=== PATIENT | male | born 1955 | race Caucasian/White ===

== ENCOUNTER 2020-08-22 08:28 | Day surgery (SDC) | payer MEDICARE, OTHER ==
[2020-08-19 15:43] VITALS: BMI 33.3
[~2020-08-22 08:28] MED LIST: LACTATED RINGERS 1,000 ML IV SCH
[2020-08-22 09:12] VITALS: TEMP 98.9
[2020-08-22] MEDS ORDERED: PROPOFOL 10 MG/ML 20 ML VIAL IV ONE (09:47)
--- NOTE | 2020-08-22 10:06 | P.PCN ---
Date of Procedure: 08/22/20 Procedure(s) Performed: BRIEF HISTORY: Patient is a 65-year-old pleasant white male scheduled for an elective colonoscopy as a part of screening for colon rectal neoplasia. He has family history of colon cancer in his mom diagnosed with a 60 paternal grandfather at age 70 PROCEDURE PERFORMED: Colonoscopy. PREOPERATIVE DIAGNOSIS: Screening for colon cancer/family history of colon cancer. IV sedation per Anesthesia. PROCEDURE: After informed consent was obtained, the patient, was brought into the endoscopy unit. IV sedation was administered by Anesthesia under continuous monitoring. Digital rectal examination was normal. Initially the Olympus CF-160 flexible video colonoscope was then inserted in the rectum, gradually advanced into the cecum without any difficulty. Careful examination was performed as the scope was gradually being withdrawn. Ileocecal valve and the appendiceal orifice were visualized and appeared normal. Prep was excellent. Mucosa of the cecum, ascending colon, transverse colon, descending colon, sigmoid colon, and rectum appeared normal. Retroflexion was performed in the rectum and no lesions were seen. Scattered left-sided diverticulosis. The patient tolerated the procedure well. IMPRESSION: Normal-appearing colon from rectum to cecum with no evidence of colitis or colorectal neoplasia. Scattered left-sided diverticulosis. RECOMMENDATIONS: Findings of this examination were discussed with the patient as well as his family. He was advised to have a repeat screening colonoscopy in 5 years because of the family history of colon cancer.
[2020-08-22 10:12] VITALS: RESP 16
[2020-08-22 10:30] VITALS: BP 142/86; PULSE 61
== END 2020-08-22 10:38 | disposition home or self-care (01) ==
LOC: ORWHC2ENDO 08:28
PROVIDERS: ATTEND Internal Medicine Gastroenterology
DX: Z12.11 Encounter for screening for malignant neoplasm of colon (principal); Z80.0 Family history of malignant neoplasm of digestive organs; K57.90 Diverticulosis of intestine, part unspecified, without perforation or abscess without bleeding; I10 Essential (primary) hypertension; E78.5 Hyperlipidemia, unspecified; Z87.891 Personal history of nicotine dependence; Z79.899 Other long term (current) drug therapy; Z88.1 Allergy status to other antibiotic agents
CPT/HCPCS: J2704; G0105

== ENCOUNTER 2023-06-08 08:37 | Emergency (ER) | payer MEDICARE, OTHER ==
[2023-06-08 09:03] LABS: Basophils # (A) 0.1 k/uL (0-0.2); Basophils % (A) 1 %; Eosinophils # (A) 0.2 k/uL (0-0.7); Eosinophils % (A) 4 %; HCT 50.4 % (39.0-53.0); HGB 17.2 gm/dL (13.0-17.5); Lymphocytes # (A) 1.5 k/uL (1.0-4.8); Lymphocytes % (A) 24 %; MCH 32.4 pg (25.0-35.0); MCHC 34.2 g/dL (31.0-37.0); MCV 94.6 fL (80.0-100.0); Mean Platelet Volume 8.6; Monocytes # (A) 0.4 k/uL (0-1.0); Monocytes % (A) 7 %; Neutrophils % (A) 63 %; Platelet Count 209 k/uL (150-450); RBC 5.33 m/uL (4.30-5.90); RDW 13.4 % (11.5-15.5); WBC 6.4 k/uL (3.8-10.6)
[2023-06-08 09:13] LABS: ALT 34 U/L (4-49); AST 41 U/L (17-59); Albumin 4.5 g/dL (3.5-5.0); Alkaline Phosphatase 85 U/L (38-126); Anion Gap 9 mmol/L; Blood Urea Nitrogen 23 mg/dL (9-20); Calcium 9.6 mg/dL (8.4-10.2); Carbon Dioxide 22 mmol/L (22-30); Chloride 108 mmol/L (98-107); Glucose 121 mg/dL (74-99); Magnesium 2.2 mg/dL (1.6-2.3); Potassium 4.2 mmol/L (3.5-5.1); Sodium 139 mmol/L (137-145); Total Bilirubin 0.6 mg/dL (0.2-1.3); Total Protein 7.5 g/dL (6.3-8.2)
[2023-06-08 09:14] LABS: African American GFR (CKD) >90 (>60 ml/min/1.73 sqM); Non-African American GFR(CKD) >90 (>60 ml/min/1.73 sqM)
[2023-06-08 09:20] LABS: Partial Thromboplastin Time 24.9 sec (22.0-30.0); Prothrombin Time 11.1 sec (10.0-12.5)
--- NOTE | 2023-06-08 09:36 | ED ---
General Adult HPI - General Chief complaint: Chest Pain Stated complaint: chest pain Time Seen by Provider: 06/08/23 09:29 Source: patient, RN notes reviewed, old records reviewed Mode of arrival: ambulatory Limitations: no limitations - History of Present Illness Initial comments: Patient is a 67-year-old male with past medical history remarkable for hypertension, arthritis, back pain who presents emergency department complaining of left-sided rib pain under his armpit as well as occasional left-sided arm shooting numbness. States the pain and numbness seems positional, somewhat worse with certain movements as well as with turning of his neck. States has been ongoing for multiple days. Denies any diaphoresis, nausea, vomiting. Den ies any abdominal pain. Currently has no pain. Does receive injections for the right shoulder. No recent CT imaging of the neck. Denies shortness of breath or recent long distance travel. Denies any leg swelling. Presents for further evaluation at this time. Currently is asymptomatic. - Related Data Home Medications Medication Instructions Recorded Confirmed Ibuprofen [Motrin] 600 mg PO BID PRN 08/30/14 06/08/23 Losartan Potassium [Cozaar] 100 mg PO HS 08/30/14 06/08/23 Metoprolol Succinate [Toprol XL] 200 mg PO BID 08/30/14 06/08/23 Naproxen Sodium [Aleve] 440 mg PO BID 08/04/15 06/08/23 amLODIPine BESYLATE [Norvasc] 10 mg PO HS 08/04/15 06/08/23 Fenofibrate Nanocrystallized 145 mg PO DAILY 08/19/20 06/08/23 [Tricor] Betamethasone Dipropionate 1 applic TOPICAL DAILY PRN 06/08/23 06/08/23 [Diprolene 0.05% Cream (GEQ)] Tamsulosin [Flomax] 0.4 mg PO PC-SUPPER 06/08/23 06/08/23 Allergies Allergy/AdvReac Type Severity Reaction Status Date / Time azithromycin Allergy Severe Rash/Hives Verified 06/08/23 09:53 [From Zithromax Z-Adrian] all over body Review of Systems ROS Statement: Those systems with pertinent positive or pertinent negative responses have been documented in the HPI. Review of Systems: CONST: Denies fever EYES: Denies blurry vision ENT: Denies nasal congestion C/V: Denies Chest pain RESP: Denies shortness of breath GI: Denies abdominal pain : Denies dysuria SKIN: Denies rash. MSK: Denies joint pain. NEURO: Denies headache ROS Other: All systems not noted in ROS Statement are negative. Past Medical History Past Medical History: Eye Disorder, Hypertension, Osteoarthritis (OA) Additional Past Medical History / Comment(s): CHRONIC BACK PAIN, hemorrhoids, bulging disks, glaucoma History of Any Multi-Drug Resistant Organisms: None Reported Past Surgical History: Back Surgery, Hernia Repair, Orthopedic Surgery Additional Past Surgical History / Comment(s): LAMINECTOMY L5- S1,COLONOSCOPY,BILAT BUNION SX. BONE SPUR REMOVED FROM SINUS CAVITY, JESSICA inguinal AND UMBILICAL HERNIA REPAIR, laser surgery jessica eyes, jessica cataracts, rotator cuff rt shoulder, Past Anesthesia/Blood Transfusion Reactions: Previous Problems w/ Anesthesia Additional Past Anesthesia/Blood Transfusion Reaction / Comment(s): hiccups for 11 days after shoulder surgery Past Psychological History: No Psychological Hx Reported Smoking Status: Current every day smoker - Past Family History Mother Family Medical History: Cancer Additional Family Medical History / Comment(s): rectal Sister(s) Family Medical History: Cancer Additional Family Medical History / Comment(s): breast Brother(s) Family Medical History: Cancer Additional Family Medical History / Comment(s): kidney, brain Son(s) Family Medical History: Cancer General Exam - General Exam Comments Initial Comments: General: Appears in no acute distress. HEAD: Normal with no signs of head trauma. EYES: PERRLA, EOMI, conjunctiva normal, no discharge. ENT: Hearing grossly intact, normal oropharynx. RESPIRATORY: Clear breath sounds bilaterally. No wheezes, rales, or rhonchi. C/V: Regular rate and rhythm. S1 and S2 auscultated, no edema, peripheral pulses 2+ and intact throughout, symmetrical. Hypertensive in triage however patient did not take his medications this morning. Took them since that blood pressure reading. ABD: Abd is soft, nontender, nondistended EXT: No midline cervical, thoracic spine tenderness to palpation. No midline lumbar spine tenderness to palpation. Paraspinal muscle tenderness palpation of the neck as well as upper thoracic spine with some tenderness to palpation in the posterior shoulder. SKIN: No rashes or lesions observed on exposed skin. NEURO: Alert and oriented x 4. Cranial nerves II-XII intact. No focal sensory or strength deficits. Limitations: no limitations Course Vital Signs 06/08/23 06/08/23 06/08/23 08:38 09:49 11:30 Temperature 97.4 F L Pulse Rate 79 58 L Respiratory 18 16 Rate Blood Pressure 200/94 132/82 161/56 O2 Sat by Pulse 98 96 Oximetry 06/08/23 06/08/23 12:00 13:12 Temperature 98.8 F Pulse Rate 60 Respiratory 18 Rate Blood Pressure 137/75 155/81 O2 Sat by Pulse 97 Oximetry Medical Decision Making - Medical Decision Making Was pt. sent in by a medical professional or institution (, PA, WELL SERVICE DERRICK WORKER, urgent care, hospital, or half-way...) When possible be specific @ -No Did you speak to anyone other than the patient for history (EMS, parent, family, police, friend...)? What history was obtained from this source @ -No Did you review nursing and triage notes (agree or disagree)? Why? @ -I reviewed and agree with nursing and triage notes Were old charts reviewed (outside hosp., previous admission, EMS record, old EKG, old radiological studies, urgent care reports/EKG's, half-way records)? Report findings @ -Old charts reviewed Differential Diagnosis (chest pain, altered mental status, abdominal pain women, abdominal pain men, vaginal bleeding, weakness, fever, dyspnea, syncope, headac he, dizziness, GI bleed, back pain, seizure, CVA, palpatations, mental health, musculoskeletal)? @ -ACS, chest wall pain, muscle strain, muscle spasm, cervical radiculopathy, this list is not all inclusive. EKG interpreted by me (3pts min.). @ -As above X-rays interpreted by me (1pt min.). @ -Chest x-ray shows no acute cardiopulmonary process. CT interpreted by me (1pt min.). @ -Chest CTA revealed no obvious pulmonary embolism. Patient does have COPD. CT C-spine reveals degeneration in the cervical spine. U/S interpreted by me (1pt. min.). @ -None done What testing was considered but not performed or refused? (CT, X-rays, U/S, labs)? Why? @ -None What meds were considered but not given or refused? Why? @ -I offered analgesia medications which patient declined. Did you discuss the management of the patient with other professionals (professionals i.e. , PA, WELL SERVICE DERRICK WORKER, lab, RT, psych nurse, social worker masters, insulation helper, teacher, child support officer, case mgr)? Give summary @ -No Was smoking cessation discussed for >3mins.? @ -No Was critical care preformed (if so, how long)? @ -No Were there social determinants of health that impacted care today? How? (Homelessness, low income, unemployed, alcoholism, drug addiction, transportation, low edu. Level, literacy, decrease access to med. care, nursing home, rehab)? @ -No Was there de-escalation of care discussed even if they declined (Discuss DNR or withdrawal of care, Hospice)? DNR status @ -No What co-morbidities impacted this encounter? (DM, HTN, Smoking, COPD, CAD, Cancer, CVA, ARF, Chemo, Hep., AIDS, mental health diagnosis, sleep apnea, morbid obesity)? @ -None Was patient admitted / discharged? Hospital course, mention meds given and route, prescriptions, significant lab abnormalities, going to OR and other pertinent info. @ -Based on the patient's presentation and physical exam, presents with atypical what he describes chest pain which seems to be more chest wall pain and musculoskeletal back pain and possible cervical radiculopathy. Workup was started in triage. I evaluated the patient when he was placed in a room. We will obtain cardiac workup including screening D-dimer. Patient was in agreement this plan. Will also obtain chest x-ray and CT of the neck. Patient will receive lidocaine patch for analgesia at this time. Laboratory studies have already returned by the time evaluated the patient were remarkable for an undetectable troponin. D-dimer was added we will obtain a second troponin as the patient is currently asymptomatic and would like to go home if possible. Patient was in agreement this plan.Patient is currently hypertensive however patient has recently taken his blood pressure medication since the initial reading. Therefore we will continue to monitor at this time. Vital signs within acceptable limits. EKG shows no signs of acute ischemia. Patient's laboratory studies, as stated above are within acceptable limits including a troponin that is undetectable. D-dimer returned elevated and therefore we added on a CT PE to evaluate for pulmonary embolism. Second 3-hour troponin was undetectable. Chest x-ray showed no signs of acute pulmonary process. Chest CTA revealed no obvious pulmonary embolism. Patient does have COPD. CT C-spine reveals degeneration in the cervical spine. No obvious fracture or injury. At this time, I updated the patient. He is resting comfortably and would like to go home. He was in agreement this plan. We discussed his workup results. Patient will follow-up with his physician next week. Patient already follows up with orthopedics which he will do. He will be discharged home at this time. Strict return precautions discussed. I instructed the patient to follow up with their PCP in the next 1-3 days. I explained that the patient should return to the emergency department if they experience any worsening symptoms. Strict return precautions were discussed with the patient. The patient expressed understanding of these instructions. I answered all questions that the patient had. The patient was discharged home in good condition with their prescriptions and follow up information. Undiagnosed new problem with uncertain prognosis? @ -No Drug Therapy requiring intensive monitoring for toxicity (Heparin, Nitro, Insulin, Cardizem)? @ -No Were any procedures done? @ -No Diagnosis/symptom? @ -Cervical radiculopathy, muscle strains, chest wall pain. Acute, or Chronic, or Acute on Chronic? @ -Acute on chronic Uncomplicated (without systemic symptoms) or Complicated (systemic symptoms)? @ -Uncomplicated Side effects of treatment? @ -None Exacerbation, Progression, or Severe Exacerbation] @ -No Poses a threat to life or bodily function? @ -Unlikely - Lab Data Result diagrams: 06/08/23 08:45 06/08/23 08:45 Lab Results 06/08/23 06/08/23 06/08/23 Range/Units 08:45 08:45 08:45 WBC 6.4 (3.8-10.6) k/uL RBC 5.33 (4.30-5.90) m/uL Hgb 17.2 (13.0-17.5) gm/dL Hct 50.4 (39.0-53.0) % MCV 94.6 (80.0-100.0) fL MCH 32.4 (25.0-35.0) pg MCHC 34.2 (31.0-37.0) g/dL RDW 13.4 (11.5-15.5) % Plt Count 209 (150-450) k/uL MPV 8.6 Neutrophils % 63 % Lymphocytes % 24 % Monocytes % 7 % Eosinophils % 4 % Basophils % 1 % Neutrophils # 4.0 (1.3-7.7) k/uL Lymphocytes # 1.5 (1.0-4.8) k/uL Monocytes # 0.4 (0-1.0) k/uL Eosinophils # 0.2 (0-0.7) k/uL Basophils # 0.1 (0-0.2) k/uL PT 11.1 (10.0-12.5) sec INR 1.0 (<1.2) APTT 24.9 (22.0-30.0) sec D-Dimer (<0.60) mg/L FEU Sodium 139 (137-145) mmol/L Potassium 4.2 (3.5-5.1) mmol/L Chloride 108 H (98-107) mmol/L Carbon Dioxide 22 (22-30) mmol/L Anion Gap 9 mmol/L BUN 23 H (9-20) mg/dL Creatinine 0.80 (0.66-1.25) mg/dL Est GFR (CKD-EPI)AfAm >90 (>60 ml/min/1.73 sqM) Est GFR (CKD-EPI)NonAf >90 (>60 ml/min/1.73 sqM) Glucose 121 H (74-99) mg/dL Calcium 9.6 (8.4-10.2) mg/dL Magnesium 2.2 (1.6-2.3) mg/dL Total Bilirubin 0.6 (0.2-1.3) mg/dL AST 41 (17-59) U/L ALT 34 (4-49) U/L Alkaline Phosphatase 85 (38-126) U/L Troponin I (0.000-0.034) ng/mL Total Protein 7.5 (6.3-8.2) g/dL Albumin 4.5 (3.5-5.0) g/dL 06/08/23 06/08/23 06/08/23 Range/Units 08:45 08:45 11:40 WBC (3.8-10.6) k/uL RBC (4.30-5.90) m/uL Hgb (13.0-17.5) gm/dL Hct (39.0-53.0) % MCV (80.0-100.0) fL MCH (25.0-35.0) pg MCHC (31.0-37.0) g/dL RDW (11.5-15.5) % Plt Count (150-450) k/uL MPV Neutrophils % % Lymphocytes % % Monocytes % % Eosinophils % % Basophils % % Neutrophils # (1.3-7.7) k/uL Lymphocytes # (1.0-4.8) k/uL Monocytes # (0-1.0) k/uL Eosinophils # (0-0.7) k/uL Basophils # (0-0.2) k/uL PT (10.0-12.5) sec INR (<1.2) APTT (22.0-30.0) sec D-Dimer 0.80 H (<0.60) mg/L FEU Sodium (137-145) mmol/L Potassium (3.5-5.1) mmol/L Chloride (98-107) mmol/L Carbon Dioxide (22-30) mmol/L Anion Gap mmol/L BUN (9-20) mg/dL Creatinine (0.66-1.25) mg/dL Est GFR (CKD-EPI)AfAm (>60 ml/min/1.73 sqM) Est GFR (CKD-EPI)NonAf (>60 ml/min/1.73 sqM) Glucose (74-99) mg/dL Calcium (8.4-10.2) mg/dL Magnesium (1.6-2.3) mg/dL Total Bilirubin (0.2-1.3) mg/dL AST (17-59) U/L ALT (4-49) U/L Alkaline Phosphatase (38-126) U/L Troponin I <0.012 <0.012 (0.000-0.034) ng/mL Total Protein (6.3-8.2) g/dL Albumin (3.5-5.0) g/dL - EKG Data -: EKG Interpreted by Me EKG Comments: 12-lead Electrocardiogram Interpretation Note EKG was reviewed and interpreted by myself. 12-lead ECG performed at 0845 is interpreted by me as revealing normal sinus rhythm at a rate of 72 beats per minute. [place] is normal. OR interval is 162 ms, QRS duration is 140 ms, QTc is 424 ms. Right bundle branch block present.. There were no ST or T wave abnormalities to suggest myocardial ischemia or injury. R wave progression across the precordium was satisfactory. By my interpretation this EKG is non- diagnostic for acute ischemia. Disposition Clinical Impression: Radiculopathy affecting upper extremity, Muscle strain, Chest wall pain Disposition: HOME SELF-CARE Condition: Good Instructions (If sedation given, give patient instructions): Muscle Strain (D C), Cervical Radiculopathy (ED), Chest Wall Pain (ED) Is patient prescribed a controlled substance at d/c from ED?: No Referrals: Mike Lagos MD [Primary Care Provider] - 1-2 days Time of Disposition: 12:55
[2023-06-08] MEDS: LIDOCAINE 4% PATCH TOPICAL STA (09:49)
--- NOTE | 2023-06-08 10:23 | XR ---
EXAMINATION TYPE: XR chest 2V DATE OF EXAM: 06/08/2023 9:40 AM CLINICAL INDICATION:Male, 67 years old with history of Chest Pain; [facility] COMPARISON: None TECHNIQUE: XR chest 2V Frontal and lateral views of the chest. FINDINGS: Lungs/Pleura: There is flattening of the diaphragm with increased lucency of the lungs. No evidence o f pneumothorax, pleural effusion or focal consolidation. Pulmonary vascularity: Unremarkable. Heart/mediastinum: Cardiomediastinal silhouette is unremarkable. Musculoskeletal: No acute osseous pathology. IMPRESSION: 1. No acute cardiopulmonary disease process. 2. COPD changes.
--- NOTE | 2023-06-08 11:49 | CT ---
EXAMINATION TYPE: CT chest angio for PE DATE OF EXAM: 06/08/2023 COMPARISON: Radiograph 06/08/2023 HISTORY: 67-year-old male with shortness of breath, Eval for PE. Elevated D-dimer TECHNIQUE: Contiguous axial scanning of the chest performed without and with IV Contrast, patient inj ected with 100 ml mL of Isovue 370. Coronal and sagittal MIP reconstructions performed. CT DLP: 391.4 mGycm Automated exposure control for dose reduction was used. FINDINGS: The heart is normal size without pericardial effusion. No flattening of the interventricular septum r eflux of contrast into the hepatic veins. Mild scattered coronary artery calcifications are present. Aorta normal caliber with mild atherosclerotic arch calcifications and conventional arch vessel branc addi anatomy. Enlarged 1.7 cm right hilar lymph node probably reactive/post inflammatory. Consider short interval f ollow-up to recess. No other thoracic lymphadenopathy by CT size criteria. Mild bilateral gynecomasti a. Suboptimal contrast bolus with attenuation of the pulmonary arterial system up to 140 Hounsfield unit s. Allowing for this limitation, no definite pulmonary embolus is seen. Mild to moderate upper lung predominant paraseptal and centrilobular emphysema with mild to moderate bronchial wall thickening. Some strandy atelectasis and scarring and possible mild interstitial fibro sis at the lung bases. No consolidation or pleural effusion. Visualized upper abdomen shows diminished attenuation of the hepatic parenchyma suggesting fatty infi ltration. Bones: [facility] mid and lower thoracic spine. Degenerative disc disease T2-T3. IMPRESSION: 1. SUBOPTIMAL CONTRAST BOLUS. NO DEFINITE PULMONARY EMBOLUS. 2. COPD WITH MILD TO MODERATE EMPHYSEMA. THERE MAY BE UNDERLYING MILD INTERSTITIAL FIBROSIS AT THE JAMIE NG BASES WELL. 3. AN ENLARGED 1.7 CM RIGHT HILAR LYMPH NODE PROBABLY REACTIVE/POST INFLAMMATORY. 3 MONTH FOLLOW-UP C T TO ENSURE STABILITY/RESOLUTION. 4. HEPATIC STEATOSIS. APPROPRIATE CLINICAL MANAGEMENT ADVISED.
--- NOTE | 2023-06-08 12:45 | CT ---
EXAMINATION TYPE: CT cervical spine wo con DATE OF EXAM: 06/08/2023 COMPARISON: None HISTORY: 67-year-old male LUE Radiculopathy TECHNIQUE: Contiguous axial scanning of the cervical spine without IV contrast. Coronal and sagittal reconstructions performed. CT DLP: 431.7 mGycm Automated exposure control for dose reduction was used. FINDINGS: Biapical pleural parenchymal scarring with underlying emphysematous change in the visualized upper emmanuel ngs. No craniocervical junction abnormality, predental space widening, or prevertebral soft tissue swellin g. There is advanced multilevel uncovertebral joint and facet arthropathy throughout. Moderate to severe disc/endplate degenerative change especially C4-C7 levels. Degenerative trace grade 1 anterolisthesis C7-T1. Remaining alignment is maintained. Large body habitus and elevated shoulders limits detailed assessment of the spinal canal. Suspect mod erate spinal canal stenosis at C5-C6 and C6-C7 secondary to disc osteophyte complexes. Possible mild to moderate C4-C5. Again, detailed assessment is limited. No acute fracture seen of the cervical spine. At C3-C4, severe right and moderate to severe left neural foraminal stenosis. At C4-C5, moderate bilateral neural foraminal stenosis. At C5-C6, moderate to severe left and moderate right neural foraminal stenosis. At C6-C7, severe left and moderate to severe right neuroforaminal stenosis. IMPRESSION: 1. MODERATE TO ADVANCED MULTILEVEL SPONDYLOTIC CHANGE WITH TRACE DEGENERATIVE GRADE 1 ANTEROLISTHESIS C7-T1. 2. Suspect moderate spinal canal stenoses C5-C6 and C6-C7 and probably mild to moderate at C4-C5. 3. Variable neuroforaminal stenoses, severe on the left at C6-C7 and either moderate or moderate to s evere at multiple additional levels as outlined above.
[2023-06-08 13:26] VITALS: BP 155/81; PULSE 60; RESP 18; TEMP 98.8
== END 2023-06-08 13:31 | disposition home or self-care (01) ==
LOC: EC 08:37
DX: S46.912A Strain of unspecified muscle, fascia and tendon at shoulder and upper arm level, left arm, initial encounter (principal); R07.89 Other chest pain; M50.13 Cervical disc disorder with radiculopathy, cervicothoracic region; F17.200 Nicotine dependence, unspecified, uncomplicated; Z88.1 Allergy status to other antibiotic agents; X58.XXXA Exposure to other specified factors, initial encounter
CPT/HCPCS: 36415; 93005; 85379; 80053; 83735; 84484; 85025; 85610; 85730; 71046; 72125; 71275; 99285; Q9967

== ENCOUNTER → 2023-09-01 | Outpatient (CLI) | payer MEDICARE, OTHER ==
[2023-09-01 11:07] LABS: African American GFR (CKD) >90 (>60 ml/min/1.73 sqM); Blood Urea Nitrogen 20 mg/dL (9-20); Non-African American GFR(CKD) >90 (>60 ml/min/1.73 sqM)
--- NOTE | 2023-09-01 11:59 | CT ---
EXAMINATION TYPE: CT chest w con DATE OF EXAM: 09/01/2023 COMPARISON: 06/08/2023 HISTORY: enlarged lymphnodes CT DLP: 487.7 mGycm Automated exposure control for dose reduction was used. TECHNIQUE: CT scan of the chest is performed with IV Contrast, patient injected with 100 mL of Isovue 300. MIP Images are created on CT scanner and reviewed. 3D reconstructed images are created on an independent workstation and reviewed. FINDINGS: There are mild emphysematous changes. There is no airspace consolidation or abnormal interstitial density. There is no pleural effusion, pleural thickening or pneumothorax. The great vessels the chest are normal. There is a 16 to 17 mm right hilar lymph node which is stable. No other enlarged lymph nodes are seen within the mediastinum, akash or axillary regions. Limited scanning through the upper abdomen reveals fatty infiltration liver with a significant abnorm ality. No focal osseous lesions are seen. IMPRESSION: 1. Stable 16 -17 mm right hilar lymph node. 2. No acute cardiopulmonary disease. 3. No suspicious lung mass or nodule. 4. Mild emphysematous changes.
== END | disposition home or self-care (01) ==
LOC: RADCTMAIN 10:24
PROVIDERS: ATTEND Family Medicine
DX: R59.0 Localized enlarged lymph nodes (principal); E04.1 Nontoxic single thyroid nodule
CPT/HCPCS: 82565; 84520; 71260; 36415; Q9967